=== PATIENT | female | born 1980 | race Caucasian/White ===

== ENCOUNTER 2017-02-08 13:05 | Emergency (ER) | payer OTHER ==
[2017-02-08 13:38] VITALS: TEMP 97.4
--- NOTE | 2017-02-08 15:39 | ED ---
Chest Pain HPI - General Chief Complaint: Chest Pain Stated Complaint: Side Pain, Left arm pain Time Seen by Provider: 02/08/17 14:54 Source: patient, RN notes reviewed Mode of arrival: ambulatory Limitations: no limitations - History of Present Illness Initial Comments: 36-year-old female presents to the emergency department with a chief complaint of left-sided rib pain. Patient has this left-sided rib pain for the past day. Patient states she was wondering her house and she reached down and since she' s had this pain is left-sided the ribs. Patient states she was told that there is no direct injury or trauma. Patient does admit to a history of broken ribs and left side in the past. Patient denies any fever chills. Patient states she went home to use her medical marijuana to hopefully help with the pain when she coughed it caused more left-sided rib pain. Patient states that when she takes a deep breath it hurts worse splinting seems to make it feel better. Patient denies any other injuries from the incident. Patient denies any fever chills associated with this. Patient states that she was concerned due to her symptoms that she thought that she should be evaluated.Patient denies any recent fever, chills, shortness of breath, back pain, abdominal pain, nausea vomiting, numbness or tingling, dysuria or hematuria, constipation or diarrhea, headaches or visual changes, or any other current symptoms. - Related Data Home Medications Medication Instructions Recorded Confirmed Ciprofloxacin HCl [Cipro] 250 mg PO Q12HR 02/08/17 02/08/17 Phenazopyridine [Pyridium] 100 mg PO Q6H PRN 02/08/17 02/08/17 Previous Rx's Medication Instructions Recorded Hydrocodone/Acetaminophen [[place] 1 each PO Q6HR PRN #20 tab 02/08/17 5-325] Allergies Allergy/AdvReac Type Severity Reaction Status Date / Time codeine AdvReac Insomnia Verified 02/08/17 15:21 Review of Systems ROS Statement: Those systems with pertinent positive or pertinent negative responses have been documented in the HPI. ROS Other: All systems not noted in ROS Statement are negative. Past Medical History Additional Past Medical History / Comment(s): lumbar pain History of Any Multi-Drug Resistant Organisms: None Reported Past Surgical History: Orthopedic Surgery Additional Past Surgical History / Comment(s): right shoulder Past Psychological History: No Psychological Hx Reported Smoking Status: Current every day smoker Past Alcohol Use History: None Reported Past Drug Use History: Marijuana General Exam Limitations: no limitations General appearance: alert, in no apparent distress Head exam: Present: atraumatic, normocephalic, normal inspection ENT exam: Present: normal exam, mucous membranes moist Neck exam: Present: normal inspection. Absent: tenderness, meningismus, lymphadenopathy Respiratory exam: Present: normal lung sounds bilaterally, chest wall tenderness (left lateral aspect). Absent: respiratory distress, wheezes, rales , rhonchi, stridor Cardiovascular Exam: Present: regular rate, normal rhythm, normal heart sounds. Absent: systolic murmur, diastolic murmur, rubs, gallop, clicks GI/Abdominal exam: Present: soft, normal bowel sounds. Absent: distended, tenderness, guarding, rebound, rigid Neurological exam: Present: alert, oriented X3 Psychiatric exam: Present: normal affect, normal mood Skin exam: Present: warm, dry, intact, normal color. Absent: rash Course Vital Signs 02/08/17 13:34 Temperature 97.4 F L Pulse Rate 83 Respiratory 18 Rate Blood Pressure 138/94 O2 Sat by Pulse 95 Oximetry Chest Pain MDM - MDM 36-year-old female presents with left lateral rib pain.at this time patient's rib x-rays do not show any acute fractures. Since this patient will suggest left rib strain. This time we'll start patient medication. We discussed ice to the area. Discussed follow-up with Dr. corado parameters all questions. Stated that she understood and she is in urine plan. She will be discharged. Disposition Clinical Impression: Contusion of rib on left side Disposition: HOME SELF-CARE Condition: Stable Instructions: Rib Contusion (ED) Additional Instructions: Please use medication as discussed. Please follow up with family doctor if symptoms have not improved over the next two days. Please return to the emergency room if your symptoms increase or worsen or for any other concerns. Prescriptions: Hydrocodone/Acetaminophen [[place] 5-325] 1 each PO Q6HR PRN #20 tab PRN Reason: Pain Referrals: Elodia Marrufo MD [Primary Care Provider] - 1-2 days Time of Disposition: 15:43
--- NOTE | 2017-02-08 15:41 | XR ---
EXAMINATION TYPE: XR ribs LT w pa chest xray DATE OF EXAM: 02/08/2017 CLINICAL HISTORY: Left-sided chest and rib pain. TECHNIQUE: Single frontal view of the chest is obtained. A frontal and oblique images of the left-daniela ed ribs are acquired. COMPARISON: Left-sided rib x-rays December 15, 2015. FINDINGS: There is no focal air space opacity, pleural effusion, or pneumothorax seen. The cardiac silhouette size is within normal limits. The osseous structures are intact. Dedicated images of the left-sided ribs show no acute displaced fracture. Overlying soft tissue is un remarkable. IMPRESSION: 1. No acute cardiopulmonary process. 2. No acute displaced left-sided rib fractures are evident.
[2017-02-08 15:54] VITALS: BP 134/83; PULSE 68; RESP 16
[2017-02-08] MEDS ORDERED: KETOROLAC 60 MG/2 ML VIAL IM STA (16:01)
== END 2017-02-08 16:07 | disposition home or self-care (01) ==
LOC: EC 13:05
DX: S20.212A Contusion of left front wall of thorax, initial encounter (principal); M79.602 Pain in left arm; F17.200 Nicotine dependence, unspecified, uncomplicated; Z88.5 Allergy status to narcotic agent; X58.XXXA Exposure to other specified factors, initial encounter; Y92.89 Other specified places as the place of occurrence of the external cause; Y93.89 Activity, other specified
CPT/HCPCS: 71101; 99284; 96372; J1885

== ENCOUNTER → 2018-02-15 | Outpatient (CLI) | payer OTHER ==
--- NOTE | 2018-02-15 16:12 | XR ---
EXAMINATION TYPE: XR foot limited RT DATE OF EXAM: 02/15/2018 COMPARISON: NONE HISTORY: Pain TECHNIQUE: Two views are submitted. FINDINGS: The osseous structures are intact. There is no acute fracture or dislocation. Hypertrophic change and arthropathy of the first MTP joint.. IMPRESSION: 1. No acute fracture or dislocation. If symptoms persist, follow-up exam in 7 to 10 days could be ob tained.
== END | disposition home or self-care (01) ==
LOC: RADXRMAIN 15:19
PROVIDERS: ATTEND Internal Medicine
DX: M79.671 Pain in right foot (principal); S90.31XA Contusion of right foot, initial encounter